=== PATIENT | male | born 1975 | race Caucasian/White ===

== ENCOUNTER 2019-01-22 15:20 | Emergency (ER) | payer SELFPAY ==
[~2019-01-22] VITALS: Ht 177.8 cm; Wt 70.0 kg
[2019-01-22 15:39] VITALS: BP 135/89
== END 2019-01-22 17:49 | disposition home or self-care (01) ==
LOC: ER 15:20
DX: S00.83XA Contusion of other part of head, initial encounter (principal); M25.561 Pain in right knee; M25.521 Pain in right elbow; V43.52XA Car driver injured in collision with other type car in traffic accident, initial encounter; Y93.89 Activity, other specified; Y92.488 Other paved roadways as the place of occurrence of the external cause
CPT/HCPCS: 73080; 99284

== ENCOUNTER 2023-09-16 22:29 | Emergency (ER) | payer OTHER ==
[~2023-09-16] VITALS: Ht 172.7 cm; Wt 86.2 kg
[2023-09-17 00:10] VITALS: O2SAT 98
[2023-09-17] MEDS ORDERED: BO1 TP (02:24)
[2023-09-17] MEDS ORDERED: ACET-2708 MT (02:24)
[2023-09-17] MEDS ORDERED: CYCL5TAB MT (02:24)
[2023-09-17] MEDS ORDERED: IBUP-2028 MT (02:24)
[2023-09-17 03:13] VITALS: BP 138/95; PULSE 70; RESP 18; TEMP 97.8
== END 2023-09-17 03:14 | disposition home or self-care (01) ==
LOC: ER 22:29
DX: S16.1XXA Strain of muscle, fascia and tendon at neck level, initial encounter (principal); S80.12XA Contusion of left lower leg, initial encounter; S50.01XA Contusion of right elbow, initial encounter; S60.222A Contusion of left hand, initial encounter; X58.XXXA Exposure to other specified factors, initial encounter; Y93.89 Activity, other specified; Y92.89 Other specified places as the place of occurrence of the external cause; Y99.8 Other external cause status
CPT/HCPCS: 73080; 73130; 73590; 99284